=== PATIENT | male | born 1990 | race Caucasian/White ===

== ENCOUNTER → 2017-12-14 | Outpatient (CLI) | payer OTHER ==
[2017-12-14 09:53] LABS: HEMATOCRIT 48.3 % (42.0-52.0); HEMOGLOBIN 16.4 g/dL (13.5-18.0); MEAN CELL VOLUME 94 fl (78-100); MEAN CORPUSCULAR HEMOGLOBIN 32 pg (27-31); MEAN CORPUSCULAR HGB CONC 34 g/dL (33-37); MEAN PLATELET VOLUME 9.8 fl (7.4-10.4); PLATELET COUNT 258 K/mm3 (130-400); RED BLOOD COUNT 5.13 M/mm3 (4.20-5.60); RED CELL DISTRIBUTION WIDTH 11.8 % (11.5-14.5); WHITE BLOOD COUNT 5.3 K/mm3 (4.8-10.8)
[2017-12-14 10:01] LABS: ALBUMIN 4.8 g/dL (3.5-5.0); BUN/CREATININE RATIO 17.3 (6.0-26.0); CALCIUM 9.5 mg/dL (8.4-10.2); POTASSIUM 4.8 mmol/L (3.6-5.0); TOTAL BILIRUBIN 0.7 mg/dL (0.2-1.3); TOTAL PROTEIN 9.1 g/dL (6.3-8.2)
[2017-12-14 11:10] LABS: LYMPHOCYTE 40 % (20-51); MONOCYTE 12 % (3-10); NEUTROPHILS 45 % (42-75)
== END ==
LOC: LAB 09:25
PROVIDERS: Internal Medicine
DX: Z00.00 Encounter for general adult medical examination without abnormal findings (principal); E78.2 Mixed hyperlipidemia; G43.009 Migraine without aura, not intractable, without status migrainosus

== ENCOUNTER 2023-12-12 10:53 | Emergency (ER) | payer OTHER ==
[~2023-12-12] VITALS: Ht 172.7 cm; Wt 101.8 kg
[2023-12-12 12:18] LABS: URINE APPEARANCE CLEAR (CLEAR); URINE COLOR YELLOW (YELLOW); URINE PROTEIN(semi-quant) 1+ (NEGATIVE)
[2023-12-12 12:19] LABS: URINE BILIRUBIN NEGATIVE (NEGATIVE); URINE BLOOD 1+ (NEGATIVE); URINE GLUCOSE NEGATIVE (NEGATIVE); URINE KETONE 1+ (NEGATIVE); URINE LEUKOCYTE ESTERASE NEGATIVE (NEGATIVE); URINE NITRATE NEGATIVE (NEGATIVE); URINE WBC 0-1 /hpf (0-3)
[2023-12-12 12:21] LABS: BASO # 0.06 K/mm3 (0.02-0.10); EOS # 0.03 K/mm3 (0.04-0.40); EOS % 0.4 % (0.0-4.0); HEMOGLOBIN 16.5 g/dL (13.5-18.0); LYMPH# 1.29 K/mm3 (1.50-4.00); MEAN CELL VOLUME 97 fl (78-100); MEAN CORPUSCULAR HEMOGLOBIN 34 pg (27-31); MEAN CORPUSCULAR HGB CONC 35 g/dL (33-37); MEAN PLATELET VOLUME 9.6 fl (7.4-10.4); MONO # 0.72 K/mm3 (0.20-0.80); NEU # 6.15 K/mm3 (1.40-6.50); PLATELET COUNT 197 K/mm3 (130-400); RED BLOOD COUNT 4.86 M/mm3 (4.20-5.60); RED CELL DISTRIBUTION WIDTH 11.2 % (11.5-14.5); WHITE BLOOD COUNT 8.3 K/mm3 (4.8-10.8)
[2023-12-12 12:30] LABS: ALBUMIN 4.4 g/dL (3.5-5.0)
[2023-12-12 12:32] LABS: CALCIUM 9.5 mg/dL (8.3-10.5)
[2023-12-12 12:33] LABS: TOTAL PROTEIN 7.5 g/dL (6.4-8.3)
[2023-12-12 12:35] LABS: TOTAL BILIRUBIN 0.9 mg/dL (0.2-1.2)
[2023-12-12] MEDS ORDERED: HYDROCHLOROTHIA1 T14 PO (13:26)
[2023-12-12 16:21] VITALS: BP 158/101
== END 2023-12-12 17:00 | disposition home or self-care (01) ==
LOC: ED 10:53
PROVIDERS: Physician Assistant
DX: I10 Essential (primary) hypertension (principal); R79.89 Other specified abnormal findings of blood chemistry
CPT/HCPCS: J0360

== ENCOUNTER → 2023-12-14 | Outpatient (CLI) | payer OTHER ==
[~2023-12-14] MED LIST: HYDROCHLOROTHIA1 T14 PO
[2023-12-14 11:04] LABS: URINE APPEARANCE CLEAR (CLEAR); URINE COLOR YELLOW (YELLOW); URINE GLUCOSE NEGATIVE (NEGATIVE); URINE KETONE 2+ (NEGATIVE); URINE PROTEIN(semi-quant) TRACE (NEGATIVE)
[2023-12-14 11:05] LABS: URINE BILIRUBIN 1+ (NEGATIVE); URINE BLOOD 1+ (NEGATIVE); URINE LEUKOCYTE ESTERASE NEGATIVE (NEGATIVE); URINE NITRATE NEGATIVE (NEGATIVE); URINE WBC 0-1 /hpf (0-3)
== END ==
LOC: LAB 10:47
PROVIDERS: Internal Medicine
DX: R31.21 Asymptomatic microscopic hematuria (principal)

== ENCOUNTER → 2024-03-14 | Outpatient (CLI) | payer OTHER ==
[2024-03-14 09:03] LABS: BASO # 0.04 K/mm3 (0.02-0.10); EOS # 0.08 K/mm3 (0.04-0.40); EOS % 1.3 % (0.0-4.0); HEMATOCRIT 45.5 % (42.0-52.0); HEMOGLOBIN 15.5 g/dL (13.5-18.0); LYMPH# 2.03 K/mm3 (1.50-4.00); MEAN CELL VOLUME 97 fl (78-100); MEAN CORPUSCULAR HEMOGLOBIN 33 pg (27-31); MEAN CORPUSCULAR HGB CONC 34 g/dL (33-37); MEAN PLATELET VOLUME 9.4 fl (7.4-10.4); MONO # 0.63 K/mm3 (0.20-0.80); NEU # 3.17 K/mm3 (1.40-6.50); PLATELET COUNT 228 K/mm3 (130-400); RED BLOOD COUNT 4.68 M/mm3 (4.20-5.60); RED CELL DISTRIBUTION WIDTH 11.5 % (11.5-14.5)
[2024-03-14 09:09] LABS: ALBUMIN 4.7 g/dL (3.5-5.0)
[2024-03-14 09:10] LABS: CALCIUM 10.1 mg/dL (8.3-10.5)
[2024-03-14 09:12] LABS: TOTAL PROTEIN 8.2 g/dL (6.4-8.3)
[2024-03-14 09:13] LABS: TOTAL BILIRUBIN 0.8 mg/dL (0.2-1.2)
[2024-03-14 09:50] LABS: MAGNESIUM 2.07 mg/dL (1.60-2.60)
== END ==
LOC: LAB 08:39
PROVIDERS: Internal Medicine
DX: E78.2 Mixed hyperlipidemia (principal); I10 Essential (primary) hypertension

== ENCOUNTER → 2024-07-03 | Outpatient (CLI) | payer OTHER ==
[~2024-07-03] MED LIST changes: +Iohexol 300 - 100 ML VIAL IV ONE
== END ==
LOC: RAD 11:56
DX: R10.84 Generalized abdominal pain (principal)
CPT/HCPCS: Q9967

== ENCOUNTER → 2024-12-05 | Outpatient (CLI) | payer OTHER ==
[~2024-12-05] MED LIST changes: -Iohexol 300 - 100 ML VIAL IV ONE
[2024-12-05 09:42] LABS: URINE WBC 0 /hpf (0-3)
[2024-12-05 09:57] LABS: BASO # 0.03 K/mm3 (0.02-0.10); EOS # 0.08 K/mm3 (0.04-0.40); EOS % 1.3 % (0.0-4.0); HEMOGLOBIN 16.2 g/dL (13.5-18.0); LYMPH# 2.31 K/mm3 (1.50-4.00); MEAN CELL VOLUME 99 fl (78-100); MEAN CORPUSCULAR HEMOGLOBIN 34 pg (27-31); MEAN CORPUSCULAR HGB CONC 34 g/dL (33-37); MEAN PLATELET VOLUME 9.3 fl (7.4-10.4); MONO # 0.74 K/mm3 (0.20-0.80); PLATELET COUNT 232 K/mm3 (130-400); RED BLOOD COUNT 4.83 M/mm3 (4.20-5.60); WHITE BLOOD COUNT 6.4 K/mm3 (4.8-10.8)
[2024-12-05 09:59] LABS: ALBUMIN 4.6 g/dL (3.5-5.0)
[2024-12-05 10:00] LABS: CALCIUM 9.5 mg/dL (8.3-10.5)
[2024-12-05 10:01] LABS: TOTAL PROTEIN 8.1 g/dL (6.4-8.3)
[2024-12-05 10:03] LABS: TOTAL BILIRUBIN 0.5 mg/dL (0.2-1.2)
[2024-12-05 10:08] LABS: MAGNESIUM 1.99 mg/dL (1.60-2.60)
[2024-12-05 10:40] LABS: URINE APPEARANCE CLEAR (CLEAR); URINE BILIRUBIN NEGATIVE (NEGATIVE); URINE BLOOD TRACE-INTACT (NEGATIVE); URINE COLOR YELLOW (YELLOW); URINE GLUCOSE NEGATIVE (NEGATIVE); URINE KETONE NEGATIVE (NEGATIVE); URINE LEUKOCYTE ESTERASE NEGATIVE (NEGATIVE); URINE NITRATE NEGATIVE (NEGATIVE); URINE PROTEIN(semi-quant) NEGATIVE (NEGATIVE)
== END ==
LOC: LAB 09:31
PROVIDERS: Internal Medicine
DX: Z12.5 Encounter for screening for malignant neoplasm of prostate (principal); Z00.00 Encounter for general adult medical examination without abnormal findings; E78.2 Mixed hyperlipidemia; G43.009 Migraine without aura, not intractable, without status migrainosus; I10 Essential (primary) hypertension; R31.21 Asymptomatic microscopic hematuria